=== PATIENT | female | born 1975 | race Caucasian/White ===

== ENCOUNTER 2021-05-20 12:53 | Emergency (ER) | payer OTHER ==
[~2021-05-20] VITALS: Ht 175.3 cm; Wt 90.8 kg
--- NOTE | 2021-05-20 16:35 | NUR ---
PT TO ROOM FROM LOBBY
--- NOTE | 2021-05-20 16:40 | NUR ---
THIS IS A 45 YEAR OLD FEMALE WHO HAD COVID IN [place]. "I'M FEELING DIZZY, MY VISION IS OFF, TINGLING FEELING IN BACK OF MY NECK AND IT FEELS REALLY WARM" SOB HAS NOT IMPROVED. "SOMETIMES I GET SO WINDED I FEEL LIKE I'M GOING TO PASS OUT" "I HAVE SOME RANDOM BRUISING" ( + VACCINE, PFIZER)
[2021-05-20 16:41] VITALS: BP 129/82
[2021-05-20 17:26] LABS: BASOPHILS % (AUTO) 1 % (0-1); EOSINOPHILS % (AUTO) 2 % (1-7); LYMPHOCYTES % (AUTO) 24 % (22-44); MEAN CORPUSCULAR HEMOGLOBIN 31.3 pg (27.0-34.8); MEAN CORPUSCULAR HGB CONC 33.5 g/dL (32.4-35.8); MEAN PLATELET VOLUME 7.5 fL (7.4-10.4); MONOCYTES % (AUTO) 7 % (2-9); NEUTROPHILS % (AUTO) 66 % (42-75); PLATELET COUNT 276 x10^3/uL (130-400); RED BLOOD COUNT 4.51 x10^6/uL (3.82-5.3); RED CELL DISTRIBUTION WIDTH 13.1 % (9.6-15.2)
[2021-05-20 17:36] LABS: ALBUMIN 3.3 g/dL (3.4-5.0); ANION GAP 3 mmol/L (5-15); CALCIUM 9.6 mg/dL (8.5-10.1); CHLORIDE 107 mmol/L (98-107); CREATININE 1.08 mg/dL (0.55-1.02)
== END 2021-05-20 18:56 | disposition home or self-care (01) ==
LOC: ED 18:30
DX: R06.00 Dyspnea, unspecified (principal); R51.9 Headache, unspecified; R00.0 Tachycardia, unspecified; R06.02 Shortness of breath
CPT/HCPCS: 36415; 71045; 80048; 82040; 85025; 85379; 93005; 99285